=== PATIENT | male | born 1980 | race Caucasian/White ===

== ENCOUNTER 2020-10-22 15:41 | Emergency (ER) | payer BC ==
[~2020-10-22] VITALS: Ht 180.3 cm; Wt 90.7 kg
--- NOTE | 2020-10-22 15:48 | NUR ---
PT SELF PRESENTS TO ED, STEADY GAIT C/O L SIDED CHEST DISCOMFORT PROGRESSIVELY GETTING WORST FOR THE PAST 10 DAYS W/ MILD SOB. PT STATES HX OF FACTOR V LEIDEN AND BLOOD CLOTS. PT PLACED ON MONITOR. VSS. AWAITING MD [place].
--- NOTE | 2020-10-22 15:59 | NUR ---
BONNIEP PA AT BEDSIDE FOR EVAL.
[2020-10-22] MEDS ORDERED: IOHEXOL-350 100 ML VIAL IV ONE (16:17)
[2020-10-22] MEDS ORDERED: CT SWABBABLE VALVE TRANS SET 1 EA INFUS.SET MC ONE (16:17)
[2020-10-22] MEDS ORDERED: IV NS 0.9% 250 ML IV ONE (16:18)
[2020-10-22 16:26] LABS: BASOPHILS % (AUTO) 0.5 % (0.0-2.0); EOSINOPHILS % (AUTO) 2.4 % (0.0-6.0); HEMATOCRIT 42 % (39-51); LYMPHOCYTES # (AUTO) 2.4 K/uL (0.8-4.8); LYMPHOCYTES % (AUTO) 33.1 % (20.0-44.0); MEAN CORPUSCULAR HGB CONC 34 g/dl (31.0-36.0); MEAN CORPUSCULAR VOLUME 94 fL (80-96); MONOCYTES # (AUTO) 0.5 K/uL (0.1-1.30); MONOCYTES % (AUTO) 6.6 % (2.0-12.0); NEUTROPHILS # (AUTO) 4.2 K/uL (1.8-8.9); NEUTROPHILS % (AUTO) 57.4 % (43.0-81.0); PLATELET COUNT (AUTO) 221 K/uL (150-450); RED BLOOD CELL COUNT(AUTO) 4.46 MIL/uL (4.5-6.0); WHITE BLOOD COUNT (AUTO) 7.4 K/uL (4.3-11.0)
[2020-10-22 16:40] LABS: CALCIUM, SERUM 8.6 mg/dL (8.5-10.1); CARBON DIOXIDE 24 mmol/L (21-32); CHLORIDE 105 mmol/L (98-107); CREATININE 1.1 mg/dL (0.6-1.3); GLUCOSE 114 mg/dL (74-106); POTASSIUM 4.1 mmol/L (3.5-5.1); SODIUM SERUM 139 mmol/L (136-145); UREA NITROGEN, BLOOD 21 mg/dL (7-18)
[2020-10-22 17:45] LABS: D-DIMER < 0.19 mg/L(FEU (0.17-0.50)
--- NOTE | 2020-10-22 17:58 | NUR ---
Patient discharged to home in stable condition. Written and verbal after care instructions given. Patient verbalizes understanding of instruction.IV removed. Catheter intact and site benign. Pressure and 4x4 applied to site. No bleeding noted.
[2020-10-22 17:59] VITALS: BP 136/84
== END 2020-10-22 18:00 | disposition home or self-care (01) ==
LOC: ER 15:49
DX: R07.89 Other chest pain (principal); Z86.16 Personal history of COVID-19
CPT/HCPCS: 36415; 71045; 71275; 80048; 84484; 85025; 85378; 85730; 93005 ×2; 99285; J7050; Q9967